=== PATIENT | male | born 1980 | race Two or more races ===

== ENCOUNTER 2019-07-05 11:47 | Inpatient (IN) | payer MEDICAID ==
[~2019-07-05] VITALS: Ht 177.8 cm; Wt 104.0 kg
[2019-07-05] MEDS ORDERED: PALI117D IM (16:45)
[2019-07-05] MEDS ORDERED: ZOLPIDEM TARTRATE 10 MG TABLET PO PRN (17:00)
[2019-07-05] MEDS ORDERED: INFLUENZA VIRUS VACCINE QVS 2019-20 (3YR+)/PF 60 MCG/0.5 ML SYRINGE IM ONE (18:15)
[2019-07-05 18:33] VITALS: BP 139/87
[2019-07-05] MEDS ORDERED: DOCUSATE SODIUM 100 MG CAPSULE PO PRN (21:00)
[2019-07-05] MEDS ORDERED: PETROLATUM,WHITE 28 GM JELLY TP PRN (21:00)
[2019-07-05] MEDS ORDERED: CloNIDine HCL 0.1 MG TABLET PO PRN (21:00)
[2019-07-05] MEDS ORDERED: ALBUTEROL SULFATE HFA 90 MCG/PUFF 8 GM INHALER IH PRN (21:00)
[2019-07-05] MEDS ORDERED: NICOTINE 14 MG/24 HOUR PATCH TD PRN (21:00)
[2019-07-05] MEDS ORDERED: GuaiFENesin/D-METHORPHAN [SUGAR-FREE] 200-20MG/10 ML SYRUP UDCUP PO PRN (21:00)
[2019-07-05] MEDS ORDERED: MAGNESIUM HYDROXIDE SUSPENSION 30 ML UDCUP PO PRN (21:00)
[2019-07-05] MEDS ORDERED: IBUPROFEN 400 MG TABLET PO PRN (21:00)
[2019-07-05] MEDS ORDERED: MAG HYDROX/AL HYDROX/SIMETH ES 30 ML SUSPENSION UDCUP PO PRN (21:00)
[2019-07-05] MEDS ORDERED: ACETAMINOPHEN 325 MG TABLET PO PRN (21:00)
[2019-07-05] MEDS ORDERED: LOPERAMIDE HCL 2 MG CAPSULE PO PRN (21:00)
[2019-07-05] MEDS ORDERED: ONDANSETRON HCL 4 MG TABLET PO PRN (21:00)
[2019-07-06 02:40] VITALS: BP 136/77
[2019-07-06 07:47] LABS: BASOPHILS % (AUTO) 0.5 % (0.0-2.0); EOSINOPHILS % (AUTO) 9.4 % (1.0-6.0); HEMATOCRIT 44.2 % (41-53); HEMOGLOBIN 14.8 g/dL (13.5-17.5); LYMPHOCYTES % (AUTO) 32.1 % (22.0-44.0); MEAN CORPUSCULAR HEMOGLOBIN 28.1 pg (26.0-34.0); MEAN CORPUSCULAR HGB CONC 33.5 G/dL (31.0-37.0); MEAN CORPUSCULAR VOLUME 84 fL (80-100); MONOCYTES # (AUTO) 0.5 K/uL (0.1-1.0); MONOCYTES % (AUTO) 8.5 % (2.0-9.0); NEUTROPHILS # (AUTO) 3.1 K/uL (1.8-7.7); NEUTROPHILS % (AUTO) 49.5 % (40.0-70.0); PLATELET COUNT (AUTO) 255 K/uL (150-450); RED BLOOD CELL COUNT(AUTO) 5.27 MIL/uL (4.50-5.90); RED CELL DISTRIBUTION WIDTH 13.5 % (11.5-14.5)
[2019-07-06 08:09] LABS: HEMOGLOBIN A1C 5.5 % (3.8-5.6)
[2019-07-06 08:31] LABS: ALANINE AMINOTRANSFERASE 29 U/L (12-78); ALBUMIN 3.4 g/dL (3.4-5.0); ALKALINE PHOSPHATASE 51 U/L (46-116); ANION GAP 8 mmol/L (8-16); ASPARTATE AMINOTRANSFERASE 17 U/L (15-37); BILIRUBIN,TOTAL 0.5 mg/dL (0.1-1.0); CALCIUM, TOTAL 9.5 mg/dL (8.8-10.5); CARBON DIOXIDE 27 mmol/L (22-29); CHLORIDE 104 mmol/L (98-107); CHOL/HDL RATIO 4.3 (4.2-7.3); CHOLESTEROL 155 mg/dL (131-200); CREATININE 1.22 mg/dL (0.60-1.30); FREE T4 (FREE THYROXINE) 1.34 ng/dL (0.76-1.46); GLOMERULAR FILTR. RATE CALC > 60 mL/min (>60); GLUCOSE,RANDOM 94 mg/dL (70-110); HDL CHOLESTEROL 36 mg/dL (40-60); LDL CHOL (CALC.) 94 mg/dL (0-130); POTASSIUM 3.8 mmol/L (3.5-5.1); SODIUM SERUM 139 mmol/L (136-145); THYROID STIMULATING HORMONE 2.23 uIU/mL (0.36-3.74); TRIGLYCERIDES 125 mg/dL (15-150); UREA NITROGEN, BLOOD 13 mg/dL (7-18)
[2019-07-06 08:36] VITALS: BP 124/47
[2019-07-06] MEDS ORDERED: PALIPERIDONE PALMITATE 156 MG/ML SYRINGE IM ONE (11:00)
[2019-07-06 16:08] VITALS: BP 135/82
[2019-07-06] MEDS: HALOPERIDOL 5 MG TABLET PO PRN (17:11)
[2019-07-06] MEDS: LORazepam 2 MG TABLET PO PRN (17:11)
[2019-07-07 06:32] VITALS: BP 129/72
[2019-07-07 08:12] VITALS: BP 132/76
[2019-07-07 16:00] VITALS: BP 136/88
[2019-07-07] MEDS: HALOPERIDOL 5 MG TABLET PO PRN (16:13)
[2019-07-07] MEDS: LORazepam 2 MG TABLET PO PRN (16:13)
[2019-07-08 06:18] VITALS: BP 129/79
[2019-07-08 08:00] VITALS: BP 113/70
[2019-07-08 16:18] VITALS: BP 125/68
[2019-07-09 04:43] VITALS: BP 107/58
[2019-07-09 09:26] VITALS: BP 106/78
[2019-07-09] MEDS: LORazepam 2 MG TABLET PO PRN (12:28)
[2019-07-09 16:07] VITALS: BP 130/70
[2019-07-10 06:14] VITALS: BP 122/78
[2019-07-10] MEDS ORDERED: PALI156D IM (10:42)
== END 2019-07-10 12:10 | disposition home or self-care (01) | DRG 750 ==
LOC: B3A 18:20
PROVIDERS: ADMIT Psychiatry & Neurology Psychiatry; ATTEND Psychiatry & Neurology Psychiatry
DX: F20.0 Paranoid schizophrenia (principal); R45.850 Homicidal ideations; Z28.21 Immunization not carried out because of patient refusal; R00.0 Tachycardia, unspecified; F19.10 Other psychoactive substance abuse, uncomplicated
CPT/HCPCS: 83036; 84439; 84443; 90686

== ENCOUNTER 2019-09-06 13:33 | Emergency (ER) | payer MEDICAID, OTHER ==
[~2019-09-06] VITALS: Ht 185.4 cm; Wt 100.0 kg
[~2019-09-06 13:33] MED LIST: PALI156D IM
[2019-09-06 17:03] LABS: BASOPHILS % (AUTO) 0.4 % (0.0-2.0); EOSINOPHILS % (AUTO) 6.7 % (1.0-6.0); HEMATOCRIT 43.4 % (41-53); HEMOGLOBIN 13.8 g/dL (13.5-17.5); LYMPHOCYTES # (AUTO) 1.6 K/uL (1.0-4.8); LYMPHOCYTES % (AUTO) 20.6 % (22.0-44.0); MEAN CORPUSCULAR HEMOGLOBIN 26.4 pg (26.0-34.0); MEAN CORPUSCULAR HGB CONC 31.9 G/dL (31.0-37.0); MEAN CORPUSCULAR VOLUME 83 fL (80-100); MONOCYTES # (AUTO) 0.6 K/uL (0.1-1.0); MONOCYTES % (AUTO) 8.1 % (2.0-9.0); NEUTROPHILS # (AUTO) 4.9 K/uL (1.8-7.7); NEUTROPHILS % (AUTO) 64.2 % (40.0-70.0); PLATELET COUNT (AUTO) 258 K/uL (150-450); RED BLOOD CELL COUNT(AUTO) 5.24 MIL/uL (4.50-5.90); RED CELL DISTRIBUTION WIDTH 14.3 % (11.5-14.5)
[2019-09-06 17:16] LABS: ANION GAP 12 mmol/L (8-16); CALCIUM, TOTAL 9.1 mg/dL (8.8-10.5); CARBON DIOXIDE 22 mmol/L (22-29); CHLORIDE 105 mmol/L (98-107); CREATININE 1.15 mg/dL (0.60-1.30); GLOMERULAR FILTR. RATE CALC > 60 mL/min (>60); GLUCOSE,RANDOM 89 mg/dL (70-110); POTASSIUM 3.3 mmol/L (3.5-5.1); SODIUM SERUM 139 mmol/L (136-145); UREA NITROGEN, BLOOD 16 mg/dL (7-18)
[2019-09-06 17:23] LABS: ALANINE AMINOTRANSFERASE 89 U/L (12-78); ALBUMIN 3.7 g/dL (3.4-5.0); ALKALINE PHOSPHATASE 55 U/L (46-116); ASPARTATE AMINOTRANSFERASE 72 U/L (15-37); BILIRUBIN,TOTAL 0.9 mg/dL (0.1-1.0); TOTAL PROTEIN, SERUM 7.1 g/dL (6.4-8.2)
[2019-09-06 18:30] LABS: AMPHET/METH SCREEN,URINE NEGATIVE (NEGATIVE); BARBITURATE SCREEN, URINE NEGATIVE (NEGATIVE); BENZODIAZEPINES SCREEN,URINE NEGATIVE (NEGATIVE); CANNABINOID SCREEN,URINE NEGATIVE (NEGATIVE); COCAINE SCREEN,URINE POSITIVE (NEGATIVE); METHADONE SCREEN, URINE NEGATIVE (NEGATIVE); OPIATE SCREEN,URINE NEGATIVE (NEGATIVE); PHENCYCLIDINE SCREEN,URINE NEGATIVE (NEGATIVE)
[2019-09-06 19:01] VITALS: BP 118/73
== END 2019-09-06 20:11 | disposition home or self-care (01) ==
LOC: EMS 13:34
DX: F69 Unspecified disorder of adult personality and behavior (principal); F19.90 Other psychoactive substance use, unspecified, uncomplicated
CPT/HCPCS: 36415; 80053; 80307; 85025; 99285; G0480